=== PATIENT | male | born 1945 | race Caucasian/White ===

== ENCOUNTER 2018-06-25 10:41 | Inpatient (IN) | payer OTHER ==
[2018-06-25 11:06] LABS: PLATELET COUNT 238 10^3/uL (150-400)
--- NOTE | 2018-06-25 11:24 | EDPHY ---
H & P Stated Complaint: 3 DAYS CP Time Seen by Provider: 06/25/18 10:56 HPI/ROS: CHIEF COMPLAINT: Chest pressure HISTORY OF PRESENT ILLNESS: 72-year-old male with coronary artery disease presents with chest pressure. Onset of chest pressure this morning while taking a walk. The chest pressure was moderate and resolved with rest. Pressure lasted 2+ hrs. No chest pain now. 2 prior similar episodes of chest pressure in the past 2 days, each time with ambulation. Took aspirin this morning. 9 years ago he had a cardiac catheterization and was told that he needed 2 stents. He refused stent placement at that time. He is currently being medically managed by Dr. Chavez. REVIEW OF SYSTEMS: complete 10 point ROS reviewed and is negative except for the noted elements in the HPI Source: Patient - Personal History Current Tetanus Diphtheria and Acellular Pertussis (TDAP): No - Medical/Surgical History Hx Asthma: No Hx Chronic Respiratory Disease: No Hx Diabetes: No Hx Cardiac Disease: Yes Hx Renal Disease: No Hx Cirrhosis: No Hx Alcoholism: No Hx HIV/AIDS: No Hx Splenectomy or Spleen Trauma: No Other PMH: CARDIAC HX ANGIOPLASTY YEARS AGO Constitutional: Initial Vital Signs Temperature (C) 36.6 C 06/25/18 10:42 Heart Rate 129 H 06/25/18 10:42 Respiratory Rate 18 06/25/18 10:42 Blood Pressure 141/106 H 06/25/18 10:42 O2 Sat (%) 96 06/25/18 10:42 O2 Delivery Mode Room Air Allergies/Adverse Reactions: Penicillins Allergy (Verified 06/25/18 10:42) Home Medications: Medication Instructions Recorded Herbals/Supplements -Info Only 1 ea PO DAILY 06/25/18 Aspirin EC [Aspirin EC 81 mg (*)] 81 mg PO DAILY #30 tab 06/26/18 Atorvastatin Calcium [Lipitor 40 40 mg PO DAILY #30 tab 06/26/18 mg (*)] Ticagrelor [Brilinta] 90 mg PO BID #60 tab 06/26/18 Medical Decision Making - Diagnostics EKG Interpretation: EKG interpreted by me reveals sinus tachycardia, rate 100, ST segment depression in the inferior leads, ST segment elevation in AVR, poor R-wave progression. Interpretation: Abnormal EKG Imaging Results: Chest X-Ray 06/25/18 10:52 Impression: Clear lungs. No acute process. Imaging: I viewed and interpreted images myself ED Course/Re-evaluation: This patient with known coronary artery disease presents with exertional chest pain, currently pain free. Stat EKG reveals ST segment depression in the inferior leads and ST segment elevation in AVR. Does not meet criteria for STEMI. Initial troponin is elevated at 0.7, c/w ACS. Consulted Dr. Lund, will see the patient in the hospital. Echocardiogram ordered. The hospitalist service was consulted for admission. The patient remained stable throughout his emergency department stay. Repeat EKG-HR lower, relatively unchanged: ST, ST depression inferiorly, ST levation in AVR. Repeat troponin 0.58 (decreasing) . Metoprolol 25mg orally given. No chest pain throughout his ED stay. This pt utilized 40 minutes of critical care time exclusive of unbundled procedures. Time spent in pt interview/exam, reassessments, ordering/ interpreting of tests, time spent with consultants. Organ at risk: heart Differential Diagnosis: Differential diagnosis includes though it is not limited to pneumonia, pneumothorax, pulmonary embolism, aortic dissection, pericarditis, acute coronary syndrome. - Data Points Laboratory Results: Laboratory Results 06/25/18 10:50 06/25/18 10:50 Medications Given: Discontinued Medications Aspirin (Aspirin) 325 mg PO EDNOW ONE Stop: 06/25/18 12:47 Last Admin: 06/25/18 17:44 Dose: Not Given Aspirin Buffered (Aspirin Ec) 81 mg PO DAILY PENDING SALE TO [facility] Stop: 12/23/18 08:59 Last Admin: 06/26/18 09:30 Dose: 81 mg Atorvastatin Calcium (Lipitor) 40 mg PO DAILY LESLY Stop: 12/22/18 12:59 Last Admin: 06/26/18 09:30 Dose: 40 mg Metoprolol Tartrate (Lopressor) 25 mg PO EDNOW ONE Stop: 06/25/18 11:59 Last Admin: 06/25/18 12:03 Dose: 25 mg Ticagrelor (Brilinta) 90 mg PO BID LESLY Stop: 12/22/18 20:59 Last Admin: 06/26/18 09:30 Dose: 90 mg Point of Care Test Results: Chemistry 06/25/18 10:54 POC Troponin I 0.73 ng/mL H ng/mL (0.00-0.08) Departure - Departure Disposition: [facility] Inpatient Acute Clinical Impression: Acute coronary syndrome Chest pain Qualifiers: Chest pain type: precordial pain Qualified Code(s): R07.2 - Precordial pain Condition: Serious
[2018-06-25] MEDS ORDERED: METOPROLOL TARTRATE 25 MG TAB PO ONE (11:58)
[2018-06-25] MEDS ORDERED: ACETAMINOPHEN 325 MG TAB PO PRN (12:21)
[2018-06-25] MEDS ORDERED: ONDANSETRON 4 MG/2 ML VIAL IVP PRN (12:21)
[2018-06-25] MEDS ORDERED: ONDANSETRON DISINTEGRATING 4 MG TAB PO PRN (12:21)
[2018-06-25] MEDS ORDERED: ASPIRIN 325 MG TAB PO ONE (12:46)
[2018-06-25] MEDS ORDERED: IOPAMIDOL (ISOVUE-370) 150 ML BTL IV ONE ×3 (12:56→15:19)
[2018-06-25] MEDS ORDERED: LIDOCAINE 1% 300 MG/30 ML SDV ONE (12:56)
[2018-06-25] MEDS ORDERED: MIDAZOLAM 2 MG/2 ML VIAL ONE ×2 (12:56)
[2018-06-25] MEDS ORDERED: fentaNYL 100 MCG/2 ML INJ ONE ×2 (12:56→14:34)
[2018-06-25] MEDS ORDERED: NITROGLYCERIN 0.4 MG BTL SL PRN (13:17)
[2018-06-25] MEDS ORDERED: BIVALIRUDIN 250 MG/5 ML VIAL IV ONE (14:07)
[2018-06-25] MEDS ORDERED: ADENOSINE 90 MG/30 ML VIAL IV ONE (14:31)
--- NOTE | 2018-06-25 14:47 | PDGENHP ---
History and Physical - Chief Complaint Chest Pain - History of Present Illness Florentino Granger is a 72 yo M with a PMHx of CAD who presents to [facility] for chest pain. His is at bedside who has helped with hx taking. They report that patient starting having chest pain 2 days ago with exertion. He described pain as pressure in quality, moderate in severity, occurring with exertion and resolving with rest. He was taking a walk this AM when pain recurred with radiation to his L arm so he decided to come to ED. He reports taking ASA this AM. Per report, patient had a LHC by Dr. Berry 9 years ago and was told he needed 2 stents which were not placed. He has been followed by Dr. Chavez with medical management and negative stress tests since. He denies f/c, SOB, d/ c, n/v, LH/dizziness, palpitations, edema, syncope. History Information - Allergies/Home Medication List Allergies/Adverse Reactions: Penicillins Allergy (Verified 06/25/18 10:42) Home Medications: Herbals/Supplements -Info Only 1 ea PO DAILY 06/25/18 [Last Taken Unknown] Lovastatin 20 mg PO DAILY@18 06/25/18 [Last Taken 06/24/18] I have personally reviewed and updated: family history, medical history, social history, surgical history - Past Medical History coronary artery disease, hyperlipidemia - Surgical History Reports: no pertinent surgical hx - Family History Positive for: non-pertinent Review of Systems Review of Systems: ROS: 10pt was reviewed & negative except for what was stated in HPI & below Physical Exam Physical Exam: Temp Pulse Resp BP Pulse Ox 36.8 C 94 16 132/77 H 96 06/25/18 12:55 06/25/18 12:55 06/25/18 12:55 06/25/18 12:55 06/25/18 12:55 Constitutional: no apparent distress Eyes: PERRL Ears, Nose, Mouth, Throat: moist mucous membranes Cardiovascular: regular rate and rhythym Respiratory: no respiratory distress, clear to auscultation Gastrointestinal: soft, non-tender abdomen Skin: warm Musculoskeletal: full muscle strength Neurologic: AAOx3 Psychiatric: interacting appropriately Lab Data & Imaging Review 06/25/18 10:50 06/25/18 10:50 WBC 6.62 10^3/uL (3.80-9.50) 06/25/18 10:50 RBC 5.02 10^6/uL (4.40-6.38) 06/25/18 10:50 Hgb 15.9 g/dL (13.7-17.5) 06/25/18 10:50 Hct 47.6 % (40.0-51.0) 06/25/18 10:50 MCV 94.8 fL (81.5-99.8) 06/25/18 10:50 MCH 31.7 pg (27.9-34.1) 06/25/18 10:50 MCHC 33.4 g/dL (32.4-36.7) 06/25/18 10:50 RDW 13.3 % (11.5-15.2) 06/25/18 10:50 Plt Count 238 10^3/uL (150-400) 06/25/18 10:50 MPV 10.4 fL (8.7-11.7) 06/25/18 10:50 Neut % (Auto) 46.0 % (39.3-74.2) 06/25/18 10:50 Lymph % (Auto) 42.7 % (15.0-45.0) 06/25/18 10:50 Stephens % (Auto) 9.2 % (4.5-13.0) 06/25/18 10:50 Eos % (Auto) 0.9 % (0.6-7.6) 06/25/18 10:50 Baso % (Auto) 0.9 % (0.3-1.7) 06/25/18 10:50 Nucleat RBC Rel Count 0.0 % (0.0-0.2) 06/25/18 10:50 Absolute Neuts (auto) 3.04 10^3/uL (1.70-6.50) 06/25/18 10:50 Absolute Lymphs (auto) 2.83 10^3/uL (1.00-3.00) 06/25/18 10:50 Absolute Monos (auto) 0.61 10^3/uL (0.30-0.80) 06/25/18 10:50 Absolute Eos (auto) 0.06 10^3/uL (0.03-0.40) 06/25/18 10:50 Absolute Basos (auto) 0.06 10^3/uL (0.02-0.10) 06/25/18 10:50 Absolute Nucleated RBC 0.00 10^3/uL (0-0.01) 06/25/18 10:50 Immature Gran % 0.3 % (0.0-1.1) 06/25/18 10:50 Immature Gran # 0.02 10^3/uL (0.00-0.10) 06/25/18 10:50 D-Dimer 0.29 ug/mLFEU (0.00-0.50) 06/25/18 10:50 Sodium 139 mEq/L (135-145) 06/25/18 10:50 Potassium 4.0 mEq/L (3.5-5.2) 06/25/18 10:50 Chloride 104 mEq/L (97-110) 06/25/18 10:50 Carbon Dioxide 26 mEq/l (22-31) 06/25/18 10:50 Anion Gap 9 mEq/L (6-14) 06/25/18 10:50 BUN 25 mg/dL (7-23) H 06/25/18 10:50 Creatinine 1.1 mg/dL (0.7-1.3) 06/25/18 10:50 Estimated GFR > 60 06/25/18 10:50 Glucose 127 mg/dL (70-100) H 06/25/18 10:50 Calcium 9.4 mg/dL (8.5-10.4) 06/25/18 10:50 POC Troponin I 0.58 ng/mL (0.00-0.08) H 06/25/18 12:02 Troponin I 0.826 ng/mL (0.000-0.034) H 06/25/18 10:50 NT-Pro-B Natriuret Pep 344 pg/mL (0-125) H 06/25/18 10:50 Assessment & Plan Assessment: ACS/Chest Pain - Reports occurring with exertion for past 2 days - Hx of CAD per report, s/p LHC ~9 years ago and was told needed 2 stents at the time which were not placed - EKG with ST depressions inferior leads - POC Trop elevated 0.73, Trop 0.8 on admission - Cardiology consulted in ED, to take patient for LHC this afternoon - S/p ASA and Metoprolol 25 mg in ED - Will continue ASA, increase statin to high intensity 40 mg Atorvastatin qd - Will order TTE - F/u cardiology recommendations s/p LHC HLD - Statin as above FEN: IVF prn, NPO for [facility] DVT PPx: Holding for [facility] Code: FULL Dispo: Admit to Medicine
[2018-06-25] MEDS ORDERED: TICAGRELOR 90 MG TAB ONE (15:34)
[2018-06-25] MEDS ORDERED: OXYCODONE/APAP 5/325 TAB PO PRN (15:58)
[2018-06-25] MEDS ORDERED: ATROPINE SULFATE 1 MG/10 ML SYR IVP PRN (15:58)
[2018-06-25] MEDS ORDERED: HYDROCODONE/APAP 5/325 TAB PO PRN (15:58)
--- NOTE | 2018-06-25 17:16 | PDMN ---
Medical Necessity Medical necessity: Pt meets IP criteria as of 06/25/2018 per MD and MCG M-[id number] ( Myocardial Infarction); est los > 2 mn for ongoing tx and management of acute coronary syndrome with exertional chest pain, ST depression on EKG and elevated troponin; requiring cardiology consultation with planned heart cath, serial labs , medication management and cardiac monitoring.
[2018-06-25] MEDS: ATORVASTATIN CALCIUM 40 MG TAB PO SCH (17:44)
--- NOTE | 2018-06-25 19:17 | GCON ---
[f rep st] CONSULTATION CARDIOLOGY CONSULT DATE OF CONSULTATION: 06/25/2018 PRIMARY DIRECTOR FUNDS DEVELOPMENT: Dr. Nam. CHIEF COMPLAINT: Chest pain and positive troponin. HISTORY OF PRESENT ILLNESS: We were asked by Dr. Sheehan in the emergency department to visit with Scott. The patient is a 72-year-old male with a history of coronary disease on the basis of angiogram in . He did have some moderate LAD and bicy-eu-jzdouyaw distal left main disease and did not receive intervention at that time, the patient tells me because he did not want stents. He has been doing w ell on medical management. He had a normal stress echocardiogram in 2014 and a normal myocardial per fusion nuclear stress test in 2011. He was last seen in the office in 2016. He was in his usual state of good health until Tuesday. He went for a walk and started to have chest pressure. This abated with rest. The same thing happened on Tuesday and again this morning. This morning he started to feel quite anxious and had what he describes as a panic attack. He felt mildly dyspneic and that his heart was racing. He felt dizzy, but did not have syncope. He went home and had 2 large bowel movements without vomiting. He then presented to the ER. He is currently chest pa in-free. First troponin 0.76. Second troponin 0.5. An EKG shows inferolateral ST depression. He w as given metoprolol and aspirin. REVIEW OF SYSTEMS: A full 10-point review of systems was performed and is negative except that which is in the History of Present Illness. ALLERGIES: Penicillin. PAST MEDICAL HISTORY: 1. Coronary disease per 2007 angiogram. 2. Dyslipidemia. OUTPATIENT MEDICATIONS: Pravastatin,vitamin D, multivitamin, amarjit, milk thistle, omega-3 fatty acids, coenzyme Q10. SOCIAL HISTORY: The patient does not smoke cigarettes. He smokes marijuana twice a week. No signif icant alcohol. 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 FAMILY HISTORY: Not applicable to the current case. PHYSICAL EXAM: VITAL SIGNS: Blood pressure 139/88, heart rate initially 129, now 90, oxygen saturat ion 95% on room air. He is afebrile. GENERAL: Well-appearing, older male in no acute distress. HE ENT: Sclerae free of jaundice. Mucous membranes are moist. CARDIOVASCULAR: JVP is less than 10. Carotids equal and 2+ without a bruit. Regular rate and rhythm without murmur, rub or gallop. LUNGS : Clear to auscultation bilaterally. No wheezes, rhonchi, or rales. ABDOMEN: Soft, nontender, non distended without bruits, masses, or hepatosplenomegaly. EXTREMITIES: Warm and well perfused withou t cyanosis, clubbing, or edema. NEURO: Alert and oriented x3 without gross focal neurologic deficit s. Appropriate mood and affect. LABORATORY DATA: CBC is normal. D-dimer is negative. Basic metabolic panel essentially normal exce pt for BUN of 25, glucose of 127. Troponin is 0.73. TSH was normal in March. LDL cholesterol was 142 in March. EKG reviewed by me x2: Initial EKG shows sinus rhythm with inferolateral ST depression. Second EKG shows sinus rhythm with improved, but still present inferolateral ST depression. Chest x-ray reviewed by me shows no acute cardiopulmonary process. Coronary angiography reviewed by me from 2007: Detailed above. ASSESSMENT AND PLAN: A 72-year-old male presents with new onset exertional angina consistent with un stable angina as it started 3 days ago. Troponin is minimally positive. EKG shows ischemia. He has received beta murray and aspirin. Risks, benefits, and alternatives of early invasive strategy were reviewed. He would like to proceed today. We will discuss with Dr. Lund. Would increase statin and favor changing to Lipitor 40 mg daily. Continue beta murray. /[id number]/MODL
[2018-06-25] MEDS: TICAGRELOR 90 MG TAB PO SCH (22:03)
--- NOTE | 2018-06-26 02:37 | CPIP ---
[f rep st] INVASIVE CARDIAC PROCEDURE DATE OF PROCEDURE: 06/25/2018 PROCEDURE: 1. Coronary angiography. 2. Left ventricular end-diastolic pressure. 3. Intravascular ultrasound of the circumflex coronary artery. 4. FFR of the circumflex coronary artery. 5. Stenting of left anterior descending coronary artery. 6. Angioplasty of left anterior descending coronary artery and diagonal coronary artery using kissin g stent technique. INDICATION: Acute coronary syndrome. ACCESS: Patient was prepped and draped in sterile fashion. 1% lidocaine was used to anesthetize the right inguinal region. A 6-Belizean introducer sheath was placed selectively into the right common fe moral artery via modified Seldinger technique. The 6-Belizean introducer sheath was later exchanged fo r a 7-Belizean introducer sheath via exchange wire technique. CORONARY ANGIOGRAPHY: A 6-Belizean JL4 was advanced to the left main coronary artery and images obtain ed. The left main coronary artery bifurcated into an LAD and circumflex coronary arteries. The left main coronary artery had a distal 10% stenosis present. The left anterior descending coronary arter y was diffusely diseased. In the mid 1 segment of the vessel there was a single discrete 90% stenosis present. In the mid 2 segment of the vessel there was a single discrete 75% stenosis present. The f irst diagonal artery was relatively small. The first diagonal artery was occluded. The 2nd diagonal artery was a large size vessel. The 2nd diagonal artery had an ostial 20% stenosis present. The ci rcumflex coronary artery was a large vessel and was codominant. The circumflex coronary artery was d iffusely diseased. In the ostial segment of the circumflex coronary artery, there appeared to be an eccentric stenosis of unclear severity. In the midportion of the vessel there was a long segmental 40 % stenosis present, and in the distal portion of vessel, there was a discreet 40-50 percent stenosis present. A 6-Belizean JR4 was advanced to the right coronary artery and images obtained. The right co ronary artery was small. The right coronary artery was codominant. The right coronary artery had a 30-40 percent stenosis in the mid vessel. Intravascular ultrasound of the circumflex coronary artery a 6-Belizean JL4 catheter was advanced to left main coronary artery and images obtained. Angiography c onfirmed an eccentric ostial lesion involving the circumflex coronary artery. A Luge wire was placed in the distal vessel and position verified by angiography. Intravascular ultrasound probe was advan anu and images obtained via pullback method. In the midportion of the vessel, a 40% stenosis could be seen by intravascular ultrasound. In the ostial portion of the vessel, there was a calcified shelf. However, the severity of the lesion was very difficult to interpret secondary to tangential plane du ring pullback. It was decided to then perform FFR to determine physiologic significance. FFR wire wa s placed in the distal circumflex coronary artery and position verified by angiography. Intravenous adenosine was given. The FFR decreased to 0.97. The wire was then pulled back to the ostium. FFR w as 1.0, indicating no flow limitation. Percutaneous coronary intervention of the left anterior descen ding coronary artery. A 7-Belizean EBU 3.5 catheter was advanced to the left main coronary artery and images obtained and Luge wire was placed in the distal vessel and position verified by angiography. A 2.5 x 15 balloon was used to pre-dilate the mid 1 lesion. Followup angiography demonstrated signif icant residual stenosis and NIKKI-3 flow. A 2.5 x 24 Synergy drug-eluting stent was placed across the mid 1 and the mid 2 lesion and deployed. Followup angiography demonstrated NIKKI-3 flow, incomplete s tent expansion in the proximal portion of the stent. The proximal portion of the stent was dilated w ith a 3.0 x 8 balloon. Followup angiography demonstrated NIKKI-3 flow complete apposition. The 2nd d iagonal artery appeared to have an ostial 80% to 90% stenosis secondary to plaque shift. A Prowater J was placed in the diagonal artery and position verified by angiography. A 1.5 x 15 balloon was use d to open up the side cells into the diagonal artery. Kissing balloon technique was then used to dil ate the diagonal and left anterior descending coronary artery simultaneously. A 2.0 x 15 balloon was placed in the diagonal artery. A 2.5 x 15 balloon was placed in the left anterior descending coronar y artery and deployed simultaneously. Followup angiography demonstrated NIKKI-3 flow, no residual naida nosis in the left anterior descending coronary artery and perhaps a 20% stenosis to 40% stenosis in t he ostial diagonal artery. COMPLICATIONS: None. CONCLUSIONS: 1. Single-vessel coronary disease involving the left anterior descending coronary artery, diffusely diseased circumflex coronary artery with no evidence of flow limitation by FFR. 2. Status post successful stent placement to the left anterior descending coronary artery. /[id number]/MODL
[2018-06-26] MEDS ORDERED: ASPIRIN EC 81 MG TAB PO SCH (09:00)
[2018-06-26] MEDS: ATORVASTATIN CALCIUM 40 MG TAB PO SCH (09:30)
[2018-06-26] MEDS: TICAGRELOR 90 MG TAB PO SCH (09:30)
[2018-06-26 10:09] VITALS: BP 117/60
--- NOTE | 2018-06-26 10:41 | PDCARPN ---
Cardiology Progress Note Chief Complaint: Acute Coronary Syndrome Assessment/Plan: Assessment: CAD: Cardiac angiogram resulting in FFR of Circumflex, PCI of LAD or Diag. There were no complications. He has been up ambulating with no groin bleeding. He has no chest pain,SOB, or dizziness. He will go home on Brilinta, antiplatelet. He understands groin precautions for 7 days with no heavy lifting, pushing, or pulling greater than 10 pounds. Groin care instructions discussed, and written instruction provided. Plan: Home today with follow up in one week at [facility]. 06/26/18 10:34 Reviewed/Discussed With: hospitalist (Servando Montiel MD), multidisciplinary team Time Spent with Patient: greater than 25 minutes Time Spent with Patient: Greater than 25 minutes spent on this patients care, greater than 50% of time spent counseling, educating, and coordinating care regarding the above mentioned plan. Objective: Vital Signs (8 Hrs) Temp Pulse Resp BP Pulse Ox 06/26/18 09:07 126 H 117/60 96 06/26/18 08:00 36.8 C 66 18 110/57 L 95 06/26/18 04:15 36.7 C 58 L 12 105/60 98 Intake/Output (24 Hrs) 06/25/18 06/26/18 06/27/18 05:59 05:59 05:59 Intake Total 1325 Output Total 925 Balance 400 Intake: Oral (ml) 525 IV Intake (ml) 800 Output: Urine (ml) 925 Catheter 400 Urinal 525 Other: Weight 56.8 kg Intake Quantity Yes Sufficient Result Diagrams: 06/25/18 10:50 06/26/18 03:42 Cardiac Labs: Cardiac Lab Results (72 Hrs) 06/26/18 06/25/18 03:42 19:05 Troponin I 3.600 H 1.400 H - Physical Exam Constitutional: no apparent distress Cardiovascular: regular rate and rhythm, no murmurs, no rubs, no gallops Peripheral Pulses: 2+: femoral (R), femoral (L), dorsalis-pedis (R), dorsalis- pedis (L) Respiratory: clear to auscultate bilat, no crackles, no wheezes Skin: warm, no edema Neurologic: AAOx3 Psychiatric: cooperative, interactive ICD10 Worksheet Patient Problems: Problems Problem Status Onset Chest pain Acute Chronic Disease Mgmt/Transitional Care Acute
--- NOTE | 2018-06-26 11:12 | ECHO ---
[email or web address] [address] [address] Main: [phone] Echocardiography Examination Transthoracic Name: NU DAWN MR#: [id number] Study Date: 06/26/2018 Study Time: 08:23 AM Date of : 1945 Age: 72 year(s) Height: 170.2 cm (67 in.) Weight: 56.7 kg (125 lb.) BSA: 1.66 m2 Gender: Male Examination: Echo Contrast: Image Quality: Technically Difficult Rhythm: Heart Rate: BP: 110 mmHg/57 mmHg Indication: Chest pain/post LAD stent Procedure Staff Referring Physician: Subscription Agent: Jacqueline Pierre TYRONE Reading Physician: Andie Smith MD Requesting Provider: Ordering Physician: Columba Sheehan Indication: Chest pain/post LAD stent Measurements Chambers AV/MV Label Value Normal Value Label Value Normal Value LVDd, 2D 4.6 cm (4.2cm - 5.9cm) AV PGmax 7 mmHg LVDs, 2D 3 cm (2.1cm - 4cm) AV PGmean 4 mmHg IVSd, 2D 0.6 cm (0.6cm - 1.1cm) AV Vmax 1.34 m/s LVPWd, 2D 0.6 cm (0.6cm - 1cm) MV E Vmax 0.7 m/s LVEF, BP 71 % (55% - 70%) MV A Vmax 0.49 m/s LVEF, 2D 63 % (54% - 74%) MV E/A 1.43 LADs, 2D 2.5 cm (3cm - 4cm) MV E/E' lateral 8.6 Additional Vessels MV E/E' septal 9.8 (0.45 - 1.25) Label Value Normal Value MV E' septal 0.07 m/s AoRoot, MM 3.4 cm (2.2cm - 3.7cm) MV E' lateral 0.08 m/s MV E/E' mean 9.33 MV E' mean 0.08 m/s Conclusions 1. The left ventricle is normal in size and systolic function. Normal wall thickness. Ejection fraction is 71%. No regional wall motion abnormalities. Normal diastolic function. 2. Normal right ventricular size and systolic function. 3. Mild tricuspid regurgitation with normal estimated PA systolic pressure. 4. Trivial anterior pericardial effusion. Patient: NU DAWN Study Date: 06/26/2018 Page 1 of 2 08:23 AM 5. No previous echo Findings Left Ventricle: Left ventricle is normal in size. Global hypercontractility of the left ventricle. The ejection fraction, measured by Simpsons method, is 71 %. EF range is estimated at 70 % - 75 %. Left ventricle wall thickness is normal. There are no regional wall motion abnormalities. Left ventricular diastolic function parameters are normal. IVS: The septum is intact. Right Ventricle: Normal size right ventricle. Right ventricular systolic function is normal. Left Atrium: The left atrium is normal in size. IAS: Normal appearing atrial septum. Right Atrium: The right atrium is normal in size. Mitral Valve: Normal . Trivial mitral regurgitation. No mitral valve stenosis. Aortic Valve: Aortic leaflets exhibit normal cuspal separation. No aortic valve regurgitation. There is no aortic stenosis. Tricuspid Valve: Tricuspid valve leaflets are normal in appearance and function. Mild tricuspid regurgitation. No tricuspid valve stenosis. Pulmonary artery pressure normal. Pulmonic Valve: Pulmonic valve is poorly visualized. No pulmonic valve regurgitation is evident. There is no pulmonic valve stenosis. Aorta: The aorta is normal. The aortic root size in M-mode measures 3.4 cm. Aorta Measurements AoRoot, MM is 3.4 cm. Pulmonary Artery: The pulmonary artery morphology appears normal. IVC: The inferior vena cava is normal in size and course. Pericardium: Trivial anterior pericardial effusion. No pleural effusion present. Exam Details Procedure Ordered: Echo Procedure Status: Routine study Image Quality: Technically Difficult Facility Location: Cardiac Echo 1 (No Signature Object) Patient: NU DAWN Study Date: 06/26/2018 Page 2 of 2 08:23 AM [id number]
--- NOTE | 2018-06-26 14:19 | PDDCSUM ---
Discharge Summary Discharge Summary: Date of Admission: 06/25/2018 Date of Discharge: 06/26/2018 Consults: Cardiology Procedures: TTE, LHC with Stent to LAD Followup: Cardiology, PCP Hospital Course Problem List: CAD - Reports occurring with exertion for past 2 days - Hx of CAD per report, s/p LHC ~9 years ago and was told needed 2 stents at the time which were not placed - EKG with ST depressions inferior leads, POC Trop elevated 0.73, Trop 0.8 on admission - Cardiology consulted in ED, s/p [facility] resulting in FFR of Circumflex, PCI of LAD - S/p ASA and Metoprolol 25 mg in ED - Will continue ASA, increase statin to high intensity 40 mg Atorvastatin qd, Brilinta 90 mg BID - TTE performed showing normal ED - WIll f/u with Dr. Chavez in Cardiology clinic HLD - Statin as above Patient had unanticipated trisha discharge due to patient recovering more quickly than expected. Time spent on discharge was >35 minutes with >50% of time spent on patient education and counseling.
--- NOTE | 2018-06-28 17:42 | CPEKG ---
Test Reason : OPEN Blood Pressure : / mmHG Vent. Rate : 090 BPM Atrial Rate : 091 BPM P-R Int : 148 ms QRS Dur : 095 ms QT Int : 365 ms P-R-T Axes : 080 -80 076 degrees QTc Int : 447 ms Sinus rhythm Left anterior fascicular block Low voltage, precordial leads Anteroseptal infarct, old Confirmed by Columba Perkins ([id number]) on 06/28/2018 5:41:52 PM Referred By: COLUMBA PERKINS Confirmed By:Columba Perkins
--- NOTE | 2018-06-28 17:43 | CPEKG ---
Test Reason : OPEN Blood Pressure : / mmHG Vent. Rate : 100 BPM Atrial Rate : 102 BPM P-R Int : 144 ms QRS Dur : 100 ms QT Int : 335 ms P-R-T Axes : 076 263 069 degrees QTc Int : 432 ms Sinus tachycardia Probable left atrial enlargement LAD, consider left anterior fascicular block Low voltage, extremity leads Anteroseptal infarct, old Confirmed by Columba Sheehan ([id number]) on 06/28/2018 5:42:23 PM Referred By: PHYSICIAN ED Confirmed By:Columba Sheehan
--- NOTE | 2018-06-29 09:47 | PQFORM ---
PHYSICIAN QUERY FORM Needs Your Response This query form is being sent to you to assure this patient record is coded properly. Please respond to the question below: [facility] OFFICER QUESTION: Dr Montiel Which diagnosis best reflects patients Chest Pain _X_ Acute Coronary Syndrome __ Unstable Angina __ Other (Please Specify ) __ Unable to determine Thank You Ximena BOWEN [employer]or INSTRUCTIONS FOR RESPONSE: Answer question by clicking on the "Edit Document" button. Move cursor to area below the stars. When complete, hit "Save." Click on the "Sign" button, then click "Sign" again. Type in your PIN and hit "Enter." Chest pain best reflected by Acute Coronary syndrome. Thank you! ANDRÉS
== END 2018-06-26 11:59 | disposition home or self-care (01) | DRG 247 ==
LOC: F2W 12:41
PROVIDERS: ADMIT Internal Medicine; ATTEND Internal Medicine
PROC: B2161ZZ Fluoroscopy of Right and Left Heart using Low Osmolar Contrast (ICD-10-PCS; principal; 2018-06-25 15:54)
PROC: B2111ZZ Fluoroscopy of Multiple Coronary Arteries using Low Osmolar Contrast (ICD-10-PCS; principal; 2018-06-25 15:54)
PROC: 4A023N7 Measurement of Cardiac Sampling and Pressure, Left Heart, Percutaneous Approach (ICD-10-PCS; principal; 2018-06-25 15:54)
PROC: 027135Z Dilation of Coronary Artery, Two Arteries with Two Drug-eluting Intraluminal Devices, Percutaneous Approach (ICD-10-PCS; principal; 2018-06-25 15:54)
DX: I25.110 Atherosclerotic heart disease of native coronary artery with unstable angina pectoris (principal); I24.9 Acute ischemic heart disease, unspecified; E78.5 Hyperlipidemia, unspecified
CPT/HCPCS: 84484-ER; 97165-GO; C1725; C1753; C1760; C1769; C1874; C1887; C9600; C9606; J0153; J0583; J1644; J2250; J3010; Q9967

== ENCOUNTER 2018-06-27 11:06 | Emergency (ER) | payer OTHER ==
[2018-06-27] MEDS ORDERED: NS 500 ML IV ONE (11:14)
[2018-06-27 11:34] LABS: PLATELET COUNT 239 10^3/uL (150-400)
[2018-06-27 11:38] LABS: INR 0.92 (0.83-1.16)
[2018-06-27] MEDS ORDERED: LORazepam 2 MG/ML INJ IVP ONE (11:50)
[2018-06-27] MEDS ORDERED: LORazepam 2 MG/ML INJ ONE (12:03)
--- NOTE | 2018-06-27 12:10 | EDPHY ---
H & P Time Seen by Provider: 06/27/18 11:14 HPI/ROS: HPI Panic attack. Recent NV. 72-year-old male by private vehicle. This patient reports that he was just discharged yesterday from the hospital after being treated for acute coronary syndrome and having a stent placed by Dr. Lund of the cardiology service. He reports that this morning after eating a turkey sandwich for breakfast he started feeling very anxious. He describes this as generalized anxiety, he felt his heart rate getting fast. He felt tingling in his hands. He has had no associated chest pain. No associated shortness of breath. On my evaluation now he is feeling better he reports that as soon as he was started on IV fluids his symptoms started to resolve. He has had panic attacks similar to this in the past. He states that he started thinking that something might be wrong with his stent and that is what prompted him to come to the emergency department. ROS: Constitutional: No fever, no chills. As above. Eyes: No discharge. No changes in vision. ENT: No sore throat. No nasal congestion or rhinorrhea. Respiratory: No cough. No shortness of breath. Cardiac: No chest pain, no palpitations. As above. Gastrointestinal: No abdominal pain, no vomiting, no diarrhea. Genitourinary: No hematuria. No dysuria or increased frequency with urination. Musculoskeletal: No back pain. No neck pain. No myalgias or arthralgias. Skin: No rashes. Neurological: No headache. No focal weakness or altered sensation. Past medical history: Panic attacks. Coronary artery disease as noted above. Social history: Nonsmoker. He is . His is on the way to the emergency department now. Denies alcohol. Physical Exam: General Appearance: Alert, he is anxious but not in distress. This patient is responding to questions appropriately and in full sentences. This patient appears well-hydrated and well-nourished. Eyes: Pupils equal and round no pallor or injection. No lid edema, erythema or injection. Respiratory: There are no retractions, lungs are clear to auscultation with good air movement bilaterally. Cardiovascular: Regular rate and rhythm. No murmur appreciated. Gastrointestinal: Abdomen is soft and nontender, no masses, bowel sounds normal. No focal tenderness at McBurney's point. No Yarbrough sign. Neurological: Motor sensory function is grossly intact. Cranial nerves are normal. Gait is normal. Skin: Warm and dry, no rashes. Musculoskeletal: Neck is supple and nontender. Extremities are symmetrical. All joints range without pain or impingement. Psychiatric: No agitation. No depression. Database: EKG: EKG time is 11:15 a.m.; EKG shows a narrow complex normal sinus rhythm with a ventricular rate of 84. QS waves noted in the anterior precordial leads. Left anterior fascicular block noted. The CT, QRS, QT intervals are within normal limits. There are no ST-T wave changes indicative of ischemic or injury pattern. No evidence of right heart strain. Interpreted by me. Imaging: Chest x-ray AP portable: No acute cardiopulmonary disease process noted. Interpreted by me. Procedures: Emergency department course: Vital signs reviewed. He is afebrile. Blood pressure is 138/82. quality assurance monitor body shows a narrow complex sinus rhythm with ventricular rate of 78. IV was placed from triage. He was started on IV normal saline with 500 cc given over an hour. After my evaluation he was given 0.5 mg of IV Ativan for anxiety. EKG was obtained and reviewed by myself. IV reviewed his medical records. He has had an appropriate drop in his troponin since yesterday. 12:20 p.m., the patient is relaxed and comfortable. He feels comfortable going home with his and I feel he is appropriate for discharge. Follow-up and return to emergency department precautions have been reviewed with him. All of his questions were answered. He was discharged from the emergency department in good condition. Differential Diagnosis: The differential diagnosis on this patient includes but is not limited to anxiety reaction, panic attack. Sympathomimetic toxidrome, alcohol withdrawal, acute coronary syndrome unlikely. This represents a partial list of diagnoses considered. These considerations are based on history, physical exam, past history, reassessment and diagnostic testing. Smoking Status: Former smoker Constitutional: Initial Vital Signs Temperature (C) 36.7 C 06/27/18 11:08 Heart Rate 92 06/27/18 11:08 Respiratory Rate 16 06/27/18 11:08 Blood Pressure 131/78 H 06/27/18 11:08 O2 Sat (%) 97 06/27/18 11:08 O2 Delivery Mode Room Air Allergies/Adverse Reactions: Penicillins Allergy (Verified 06/25/18 10:42) Home Medications: Medication Instructions Recorded Herbals/Supplements -Info Only 1 ea PO DAILY 06/25/18 Aspirin EC [Aspirin EC 81 mg (*)] 81 mg PO DAILY #30 tab 06/26/18 Atorvastatin Calcium [Lipitor 40 40 mg PO DAILY #30 tab 06/26/18 mg (*)] Ticagrelor [Brilinta] 90 mg PO BID #60 tab 06/26/18 Medical Decision Making - Diagnostics Imaging Results: Imaging Impressions Chest X-Ray 06/27/18 11:14 Impression: No acute findings in the chest. - Data Points Laboratory Results: Laboratory Results 06/27/18 11:20 06/27/18 11:20 06/27/18 06/27/18 06/27/18 11:22 11:20 11:20 WBC RBC Hgb Hct MCV MCH MCHC RDW Plt Count MPV Neut % (Auto) Lymph % (Auto) Morris % (Auto) Eos % (Auto) Baso % (Auto) Nucleat RBC Rel Count Absolute Neuts (auto) Absolute Lymphs (auto) Absolute Monos (auto) Absolute Eos (auto) Absolute Basos (auto) Absolute Nucleated RBC Immature Gran % Immature Gran # PT 12.0 SEC SEC (12.0-15.0) INR 0.92 (0.83-1.16) APTT 30.0 SEC SEC (23.0-38.0) Sodium 138 mEq/L mEq/L (135-145) Potassium 3.8 mEq/L mEq/L (3.5-5.2) Chloride 102 mEq/L mEq/L (97-110) Carbon Dioxide 25 mEq/l mEq/l (22-31) Anion Gap 11 mEq/L mEq/L (6-14) BUN 18 mg/dL mg/dL (7-23) Creatinine 1.1 mg/dL mg/dL (0.7-1.3) Estimated GFR > 60 Glucose 130 mg/dL H mg/dL (70-100) Calcium 9.3 mg/dL mg/dL (8.5-10.4) POC Troponin I 0.94 ng/mL H ng/mL (0.00-0.08) 06/27/18 11:20 WBC 7.84 10^3/uL 10^3/uL (3.80-9.50) RBC 5.06 10^6/uL 10^6/uL (4.40-6.38) Hgb 15.8 g/dL g/dL (13.7-17.5) Hct 46.2 % % (40.0-51.0) MCV 91.3 fL fL (81.5-99.8) MCH 31.2 pg pg (27.9-34.1) MCHC 34.2 g/dL g/dL (32.4-36.7) RDW 13.3 % % (11.5-15.2) Plt Count 239 10^3/uL 10^3/uL (150-400) MPV 10.6 fL fL (8.7-11.7) Neut % (Auto) 67.8 % % (39.3-74.2) Lymph % (Auto) 22.3 % % (15.0-45.0) Morris % (Auto) 8.0 % % (4.5-13.0) Eos % (Auto) 0.5 % L % (0.6-7.6) Baso % (Auto) 0.9 % % (0.3-1.7) Nucleat RBC Rel Count 0.0 % % (0.0-0.2) Absolute Neuts (auto) 5.31 10^3/uL 10^3/uL (1.70-6.50) Absolute Lymphs (auto) 1.75 10^3/uL 10^3/uL (1.00-3.00) Absolute Monos (auto) 0.63 10^3/uL 10^3/uL (0.30-0.80) Absolute Eos (auto) 0.04 10^3/uL 10^3/uL (0.03-0.40) Absolute Basos (auto) 0.07 10^3/uL 10^3/uL (0.02-0.10) Absolute Nucleated RBC 0.00 10^3/uL 10^3/uL (0-0.01) Immature Gran % 0.5 % % (0.0-1.1) Immature Gran # 0.04 10^3/uL 10^3/uL (0.00-0.10) PT INR APTT Sodium Potassium Chloride Carbon Dioxide Anion Gap BUN Creatinine Estimated GFR Glucose Calcium POC Troponin I Medications Given: Discontinued Medications Sodium Chloride (Ns) 500 mls @ 1,000 mls/hr IV EDNOW ONE PRN Reason: Protocol Stop: 06/27/18 11:43 Last Admin: 06/27/18 11:47 Dose: 500 mls Lorazepam (Ativan Injection) 0.5 mg IVP EDNOW ONE Stop: 06/27/18 11:51 Last Admin: 06/27/18 12:05 Dose: 0.5 mg Point of Care Test Results: Chemistry 06/27/18 11:22 POC Troponin I 0.94 ng/mL H ng/mL (0.00-0.08) Departure - Departure Disposition: Home, Routine, Self-Care Clinical Impression: History of coronary artery disease, Panic attack Condition: Good Instructions: Panic Attack (ED) Additional Instructions: Read and follow provided instructions. Follow-up with your primary care physician in 1-2 days for re-evaluation as needed. Take your medication as prescribed. Return to the emergency department for worsening symptoms, chest pain, shortness of breath or other serious concerns. Referrals: RENETTA GARVEY [Primary Care Provider] - As per Instructions
[2018-06-27 12:28] VITALS: BP 138/82
--- NOTE | 2018-06-27 15:17 | CPEKG ---
Test Reason : OPEN Blood Pressure : / mmHG Vent. Rate : 084 BPM Atrial Rate : 083 BPM P-R Int : 143 ms QRS Dur : 094 ms QT Int : 374 ms P-R-T Axes : 080 266 079 degrees QTc Int : 443 ms Sinus rhythm Left anterior fascicular block Anteroseptal infarct, old Confirmed by Dirk Her ([id number]) on 06/27/2018 3:16:59 PM Referred By: Dirk Her Confirmed By:Dirk Her
== END 2018-06-27 12:33 | disposition home or self-care (01) ==
DX: F41.0 Panic disorder [episodic paroxysmal anxiety] (principal); I25.10 Atherosclerotic heart disease of native coronary artery without angina pectoris; E86.9 Volume depletion, unspecified; Z95.5 Presence of coronary angioplasty implant and graft
CPT/HCPCS: 71045; 93005; 96361; 96374; 99285; J2060; 84484-ER

== ENCOUNTER 2018-07-11 15:14 | Emergency (ER) | payer OTHER ==
--- NOTE | 2018-07-11 15:48 | EDPHY ---
H & P Stated Complaint: feels like something isn't right, stents placed 3 weeks ago, hot/cold sense Time Seen by Provider: 07/11/18 15:48 HPI/ROS: HPI CHIEF COMPLAINT: Anxiety. HISTORY OF PRESENT ILLNESS: This is a 72-year-old male, presents to the emergency room stating that since around 1:00 pm. In the afternoon he has felt very anxious, panicky, on edge. He states he feels very stressed. He also complaints cold flashes. He states that he recently had a stent placed in his LAD last month. He has been very stressed about this however today felt worse felt more anxious, also reports that he felt similar last time he was here in the emergency room and had anxiety attack. He denies any chest pain or shortness of breath, denies chest pressure. States been compliant with his medications including Brilinta. States symptoms have started around 1:00 pm has been constant. Past Medical History: Significant medical history for coronary artery disease with stents, panic attacks, anxiety. Recent cardiac stent placement. Past Surgical History: Recent cardiac stent placement last month. Social History: Denies daily use of drugs alcohol tobacco. Family History: Noncontributory ROS REVIEW OF SYSTEMS: 10 Systems were reviewed and negative with the exception of the elements mentioned in the history of present illness. Exam Constitutional triage nursing summary reviewed, vital signs reviewed, awake/ alert. Eyes normal conjunctivae and sclera, EOMI, PERRLA. HENT normal inspection, atraumatic, moist mucus membranes, no epistaxis, neck supple/ no meningismus, no raccoon eyes. Respiratory clear to auscultation bilaterally, normal breath sounds, no respiratory distress, no wheezing. Cardiovascular rate normal, regular rhythm, no murmur, no edema, distal pulses normal. Gastrointestinal soft, non-tender, no rebound, no guarding, normal bowel sounds, no distension, no pulsatile mass. Genitourinary no CVA tenderness. Musculoskeletal no midline vertebral tenderness, full range of motion, no calf swelling, no tenderness of extremities, no meningismus, good pulses, neurovascularly intact. Skin pink, warm, & dry, no rash, skin atraumatic. Neurologic awake, alert and oriented x 3, AAOx3, moves all 4 extremities equally, motor intact, sensory intact, CN II-XII intact, normal cerebellar, normal vision, normal speech. Psychiatric normal mood/affect. Heme/Lymph/Immune no lymphadenopathy. Differential Diagnosis: Includes but is not limited to in a particular order acute anxiety, panic attack, electrolyte disturbance, infection, dehydration, cardiac disease given recent stent. Medical Decision Making: Plan for this patient IV establishment with IV fluid bolus, IV Ativan for anxiety, chest x-ray, basic labs, check troponin, EKG, compared to old EKG. Patient denies any chest pain or shortness of breath. Re-evaluation: EKG interpretation by me on record in [email or web address] system. Impression time of EKG 1553, sinus rhythm rate of 82, no significant ST elevation or ST depression. When I compare this to his old EKG dated 06/27/2018 is very similar in morphology. Patient declined chest x-ray. Troponin 0.00 EKG interpretation by me on record in [employer] system. Impression time of EKG 1949: This is sinus rhythm rate of 73, no ST elevation no ST depression, very similar to previous EKG today as well as 06/27/2018. 2207 patient resting comfortably in no acute distress. Denies chest pain or shortness of breath. He is eager for discharge requesting to be discharged home. The patient had a 2nd troponin and came back elevated 0.13 however this was a lab error. The nurse reports that was a very slow hemolyzed blood draw and a point of care troponin was 10 on this blood and came back elevated however the patient has not had any chest pain or shortness of breath has done well here in emergency room. This was thought to be a lab error we repeated the point care troponin after this and came back normal additionally we confirmed this with a lab troponin. Patient had multiple troponins that were 0.00 confirmed by the lab. The 0.13 was a lab error. The patient had stable EKGs without acute ischemia that appear very similar to his 06/27/2018 EKG. Patient has been monitored here for close to 7 hr and has felt well, no chest pain or shortness of breath feels much better after Ativan would like to go home. The patient has a follow-up appoint with Dr. Lund tomorrow. Additionally discussed this case with Dr. Hardy, with Cardiology did not feel the patient needs further evaluation or admission. Agree with current treatment plan. Patient declined chest x-ray. Source: Patient - Personal History Current Tetanus/Diphtheria Vaccine: No Current Tetanus Diphtheria and Acellular Pertussis (TDAP): No - Medical/Surgical History Hx Asthma: No Hx Chronic Respiratory Disease: No Hx Diabetes: No Hx Cardiac Disease: Yes Hx Renal Disease: No Hx Cirrhosis: No Hx Alcoholism: No Hx HIV/AIDS: No Hx Splenectomy or Spleen Trauma: No Other PMH: CARDIAC HX ANGIOPLASTY YEARS AGO - Social History Smoking Status: Never smoked Constitutional: Initial Vital Signs Temperature (C) 36.6 C 07/11/18 15:37 Heart Rate 97 07/11/18 15:37 Respiratory Rate 16 07/11/18 15:37 Blood Pressure 132/78 H 07/11/18 15:37 O2 Sat (%) 97 07/11/18 15:37 O2 Delivery Mode Room Air Allergies/Adverse Reactions: Penicillins Allergy (Verified 06/25/18 10:42) Home Medications: Medication Instructions Recorded Herbals/Supplements -Info Only 1 ea PO DAILY 06/25/18 Aspirin EC [Aspirin EC 81 mg (*)] 81 mg PO DAILY #30 tab 06/26/18 Atorvastatin Calcium [Lipitor 40 40 mg PO DAILY #30 tab 06/26/18 mg (*)] Ticagrelor [Brilinta] 90 mg PO BID #60 tab 06/26/18 Medical Decision Making - Data Points Laboratory Results: Laboratory Results 07/11/18 16:05 07/11/18 16:05 Medications Given: Discontinued Medications Atorvastatin Calcium (Lipitor) 40 mg PO EDNOW ONE Stop: 07/11/18 21:21 Last Admin: 07/11/18 21:33 Dose: 40 mg Sodium Chloride (Ns) 1,000 mls @ 0 mls/hr IV EDNOW ONE; Wide Open PRN Reason: Protocol Stop: 07/11/18 16:04 Last Admin: 07/11/18 16:07 Dose: 1,000 mls Lorazepam (Ativan Injection) 0.5 mg IVP EDNOW ONE Stop: 07/11/18 16:04 Last Admin: 07/11/18 16:08 Dose: 0.5 mg Ticagrelor (Brilinta) 90 mg PO EDNOW ONE Stop: 07/11/18 21:21 Last Admin: 07/11/18 21:33 Dose: 90 mg Point of Care Test Results: Chemistry 07/11/18 07/11/1807/11/19 20:20 20:01 16:14 POC Troponin I 0.00 ng/mL ng/mL 0.13 ng/mL H ng/mL 0.00 ng/mL ng/mL (0.00-0.08) (0.00-0.08) (0.00-0.08) Departure - Departure Disposition: Home, Routine, Self-Care Clinical Impression: Anxiety Condition: Good Instructions: Anxiety (ED) Additional Instructions: 1. Rest and stay well-hydrated. 2. Return to the emergency room if he develops worsening symptoms this includes chest pain, shortness of breath, vomiting, not doing well Referrals: RENETTA GARVEY [Primary Care Provider] - As per Instructions Galdino Lund MD [Medical Doctor] - As per Instructions
[2018-07-11] MEDS ORDERED: LORazepam 2 MG/ML INJ IVP ONE (16:03)
[2018-07-11] MEDS ORDERED: NS 1,000 ML IV ONE (16:03)
[2018-07-11 16:17] LABS: PLATELET COUNT 271 10^3/uL (150-400)
[2018-07-11 16:26] LABS: INR 0.97 (0.83-1.16); PROTIME(PATIENT) 12.5 SEC (12.0-15.0)
[2018-07-11] MEDS ORDERED: TICAGRELOR 90 MG TAB PO ONE (21:20)
[2018-07-11] MEDS ORDERED: ATORVASTATIN CALCIUM 40 MG TAB PO ONE (21:20)
[2018-07-11 21:36] VITALS: BP 98/64
--- NOTE | 2018-07-21 07:23 | CPEKG ---
Test Reason : OPEN Blood Pressure : / mmHG Vent. Rate : 082 BPM Atrial Rate : 082 BPM P-R Int : 154 ms QRS Dur : 093 ms QT Int : 373 ms P-R-T Axes : 083 000 079 degrees QTc Int : 436 ms Sinus rhythm Anteroseptal infarct, age indeterminate Confirmed by Talat Faustin ([id number]) on 07/21/2018 7:22:43 AM Referred By: Talat Faustin Confirmed By:Talat Faustin
--- NOTE | 2018-07-21 07:23 | CPEKG ---
Test Reason : OPEN Blood Pressure : / mmHG Vent. Rate : 073 BPM Atrial Rate : 074 BPM P-R Int : 161 ms QRS Dur : 097 ms QT Int : 386 ms P-R-T Axes : 081 086 081 degrees QTc Int : 426 ms Sinus rhythm Anteroseptal infarct, age indeterminate Confirmed by Talat Faustin ([id number]) on 07/21/2018 7:22:42 AM Referred By: Talat Faustin Confirmed By:Talat Faustin
== END 2018-07-11 22:40 | disposition home or self-care (01) ==
DX: F41.9 Anxiety disorder, unspecified (principal); E86.9 Volume depletion, unspecified; I25.10 Atherosclerotic heart disease of native coronary artery without angina pectoris; Z95.5 Presence of coronary angioplasty implant and graft; Z79.899 Other long term (current) drug therapy
CPT/HCPCS: 96361; 96374; 99284; J2060; 84484-ER

== ENCOUNTER → 2018-07-12 | Outpatient (CLI) | payer OTHER | LOC: FIMAGING 15:49 ==